=== PATIENT | female | born 1935 | race Caucasian/White ===

== ENCOUNTER 2016-10-06 22:22 | Observation (INO) | payer MEDICARE ==
[~2016-10-06] VITALS: Ht 147.3 cm; Wt 59.1 kg
[~2016-10-06 22:22] MED LIST: ASA325 PO; CYAN1TAB42 PO; DULO60CA42 PO; EZET10T PO; HCTZ25 PO; NAPR500T PO; OMEG100020 PO; OMEP40CA25 PO; SIMV80TA PO
[2016-10-06 22:27] VITALS: BP 167/72; PULSE 94; RESP 16; O2SAT 95
--- NOTE | 2016-10-06 22:48 | ED.REPORT ---
HPI-Abd Pain F 40 and Over Date of Service Oct 06, 2016 ED Provider: Kelsey Kirk MD This is an 81 year old female with a history of [place] presenting to the ED complaining of suprapubic abdominal pain that began just prior to arrival. Pt was eating a burger when she developed sudden onset suprapubic, shooting abdominal pain. This was associated with one episode of diarrhea, she then suddenly became dizzy, near-syncopal, and nauseated. Denies vomiting, hematochezia, chest pain, diaphoresis, or shortness of breath. Reports similar symptoms with [place] previously. Nursing Notes Stated Complaint: CHEST DISCOMFORT,NAUSEA Chief Complaint: General Complaint Nursing Notes Reviewed: Yes Allergies: Coded Allergies: No Known Allergies (Verified , 02/11/13) Scheduled Aspirin-Expunged Drug, Do Not Renew! (Aspirin-Expunged Drug, Do Not Renew!) 325 Mg Tablet 325 MG PO DAILY Cyanocobalamin/FA-Expunged Drug, Do Not Renew (Vitamin R74-Dpadr Acid-Expunged Drug, Do Not) 1 Each Tablet 1 EACH PO DAILY Duloxetine-Expunged Drug, Do Not Renew! (Cymbalta-Expunged Drug, Do Not Renew!) 60 Mg Capsule. 60 MG PO DAILY Ezetimibe (Zetia) 10 Mg Tablet 10 MG PO DAILY Hydrochlorothiazide-Expunged, Do Not Renew! (Hydrochlorothiazide-Expunged, Do Not Renew!) 25 Mg Tablet 25 MG PO DAILY Naproxen-Expunged Drug, Do Not Renew! (Naprosyn-Expunged Drug, Do Not Renew!) 500 Mg Tablet 500 MG PO BID [place]-3/Dha/Epa/Fish Oil-Expunged Drug, Do No (Fish Oil 1,000 Mg-Expunged Drug, Do Not Renew) 1 Each Capsule. 1 EACH PO BID Omeprazole-Expunged Drug, Do Not Renew! (Omeprazole-Expunged Drug, Do Not Renew! ) 40 Mg Capsule. 40 MG PO BID Simvastatin-Expunged Drug, Choose New Med! (Simvastatin-Expunged Drug, Choose New Med!) 80 Mg Tablet 80 MG PO DAILY General Time Seen by MD: 22:44 Chief Complaint Other Hx Obtained From: Patient Arrived By: Walk-in Sudden in Onset?: Yes Onset Occurred: Just prior to arrival Symptom Duration: Since onset Severity: Current: Mild Pertinent Negative: Pt denies other symptoms Recent Healthcare: No recent doctor visit, No recent hospitalization Similar Sx Previous: No Past Medical History Past Medical History [place] Past Surgical History Reports: Appendectomy, Cholecystectomy Ambulatory Status Independent Review of Systems Constitutional: Denies: Chills, Fever Respiratory: Denies: Non-productive cough, Shortness of breath Cardiovascular: Denies: Chest pain GI: Reports: Abdominal pain, Diarrhea, Denies: Nausea, Vomiting Female: Denies: Dysuria Musculoskeletal: Denies: Back pain Complete sys rev & neg: except as marked. Physical Exam Vital Signs Vital Signs (First) Date Time Temp Pulse Resp B/P Pulse Ox O2 Delivery O2 Flow Rate FiO2 10/06/16 22:27 36.4 94 16 167/72 95 Room Air 10/07/16 00:48 2 Initial VS: Reviewed Head / Eyes: Atraumatic, Normocephalic, PERRL ENT: Mucous membranes moist, Conjunctiva normal, No scleral icterus Neck: Supple, Non-tender, Full range of motion Extremities: Vascular intact, Neuro intact, No swelling, No tenderness Skin: Warm, Dry, No cyanosis Neurologic: Alert, Oriented, Nonfocal Psychiatric: Mood/affect normal, Behavior normal, Normal thought content General/Constitutional: Awake, Alert Respiratory / Chest: Breath sounds NL, Breath sounds = bilat, No respiratory distress, No rales, No rhonchi, No wheezing, No stridor Cardiovascular: Heart rate NL, Regular rhythm, Heart sounds NL, Peripheral circulation NL Abdomen: BS normoactive Back: Inspection NL, Non-tender, No CVA tenderness Interpretation & Diagnostics Lab Results Interpretation Result Diagram: 10/06/16232710/06/162327 Test 10/06/16 23:28 White Blood Count 10.7th/mm3 (3.8-10.1) Red Blood Count 5.05mil/mm3 (3.90-5.20) Hemoglobin 14.6g/dL (12.0-15.6) Hematocrit 44.3% (35.0-46.0) Mean Corpuscular Volume 87.7fL (81-100) Mean Corpuscular Hemoglobin 28.9pg (27.0-35.0) Mean Corpuscular Hemoglobin Concent 33.0% (32.0-37.0) Red Cell Distribution Width 14.4% (12.3-15.4) Platelet Count 207bil/L (150-400) Neutrophils (%) (Auto) 76.9% (40-74) Lymphocytes (%) (Auto) 12.9% (14-46) Monocytes (%) (Auto) 8.5% (4-12) Eosinophils (%) (Auto) 1.3% (0-5) Basophils (%) (Auto) 0.1% (0-3) Sodium Level 139mEq/L (134-144) Potassium Level 4.1mEq/L (3.5-5.2) Chloride Level 99mEq/L (97-108) Carbon Dioxide Level 28mmol/L (18-29) Blood Urea Nitrogen 23mg/dL (8-27) Creatinine 1.12mg/dL (0.57-1.00) Estimat Glomerular Filtration Rate 67mL/min (>59) Glucose Level 110mg/dL (60-99) Calcium Level 9.4mg/dL (8.5-10.1) Magnesium Level 2.5mg/dL (1.6-2.6) Total Bilirubin 0.3mg/dL (0.0-1.2) Aspartate Amino Transf (AST/SGOT) 20U/L (0-50) Alanine Aminotransferase (ALT/SGPT) 15U/L (0-32) Alkaline Phosphatase 85U/L (25-165) Troponin T 0.010ug/L (0.0-0.011) Pro-B-Type Natriuretic Peptide 258.6pg/mL (0-738) Total Protein 7.1g/dL (6.4-8.4) Albumin 4.5g/dL (3.4-5.0) Lipase 176U/L (13-60) Hold Trevino Top Tube Received (Received) ECG Interpretation ECG Interpretation: NSR at a rate of [address] elevation t-wave inversion in AVR Time: 23:53 Interpreted by: ED physician US Abdominal Aorta Aortic diameter 1.42 cm Exam Performed by: ED physician Exam Interpreted by: ED physician Findings: Aneurysm absent Interpretation: Aneurysm absent Re-Eval/Medical Decision Med Decision/Clinical Course 81-year-old female here with past medical history of [place], here with abdominal pain, near syncope, sweating, and diarrhea after eating at [employer]. Differential diagnosis includes but is not limited to pancreatitis versus gastritis versus gastroenteritis versus [place]. Initial EKG does not show any evidence of ST elevation NJ. Labs are remarkable for mildly elevated lipase and normal troponin. Given patient's history of silent NJ in the past, and had her admitted to the hospitalist for pancreatitis and ACS rule out. She is aware and amenable to plan at this time. Re-Evaluation/Progress #1: Time of Eval: 23:02 Re-Evaluation/Progress Note: Re-checked, bedside US performed Re-Evaluation/Progress #2: Time of Eval: 01:15 Re-Evaluation/Progress Note: Discussed need for admission, all questions addressed. Consultation : Referral / Consult Name: Gertrude Diana DO Consulted With: Hospitalist Call Returned at: 01:18 [employer] Technology Manager: Accepts admit Counseled Regarding: Diagnosis, Lab results, Need for follow-up, Need for admission Discharge & Departure Primary Impression: Pancreatitis Chronicity: acute Pancreatitis type: unspecified pancreatitis type Qualified Code: K85.9 - Acute pancreatitis, unspecified Disposition: ADMITTED TO HOSPITAL Discharge Condition All VS Reviewed: Yes Condition: Stable Referrals: America Smith (PCP) Scribe Attestation Portions of this note were transcribed by Dandy Teixeira. I, Dr. Kirk personally performed the history, physical exam and medical decision-making; I reviewed and confirmed the accuracy of the information in the transcribed note. Signed by: ramirez Saldana. 10/06/2016, 23:00. Kelsey Kirk MD Oct 06, 2016 22:48 DANDY TEIXEIRA Oct 06, 2016 22:55
[2016-10-06 23:32] VITALS: BP 154/57; PULSE 62; RESP 14; O2SAT 96
[2016-10-06 23:38] LABS: BASOPHILS % (AUTO) 0.1 % (0-3); EOSINOPHILS % (AUTO) 1.3 % (0-5); MONOCYTES % (AUTO) 8.5 % (4-12); Mean Corpuscular Hemoglobin 28.9 pg (27.0-35.0); Mean Corpuscular Volume 87.7 fL (81-100); NEUTROPHILS % (AUTO) 76.9 % (40-74); Platelet Count 207 bil/L (150-400)
[2016-10-07] VITALS (12 sets, daily range): BP systolic 147–189; BP diastolic 60–83; PULSE 52–75; RESP 12–20; O2SAT 94–97
[2016-10-07 00:28] LABS: Magnesium 2.5 mg/dL (1.6-2.6); TROPONIN T 0.01 ug/L (0.0-0.011)
[2016-10-07] MEDS ORDERED: Alum-Mag Hydrox-Simeth 30 mL Suspension PO PRN ×2 (01:40→02:05)
[2016-10-07] MEDS ORDERED: Ondansetron 2 mg/mL 2 mL Inj IVPUSH PRN ×2 (01:40→02:05)
[2016-10-07] MEDS ORDERED: Polyethylene Glycol (PEG) 17 Gm Powder PO PRN (02:05)
[2016-10-07] MEDS: 0.9% Sodium Chloride 1,000 ML IV SCH ×4 (02:32→23:54)
[2016-10-07] MEDS ORDERED: CHOL10008 PO (02:38)
[2016-10-07] MEDS ORDERED: OMEP40CA36 PO (03:41)
[2016-10-07] MEDS ORDERED: SIMV80TA4 PO (03:41)
[2016-10-07] MEDS ORDERED: DULO60CA61 PO (03:41)
[2016-10-07] MEDS ORDERED: ASPI325T32 PO (03:41)
[2016-10-07] MEDS ORDERED: MELA1TAB10 PO (03:42)
--- NOTE | 2016-10-07 03:45 | NUR ---
Admit Patient admitted to room 3020 at about 0200. Med list entered per patient recall. Property waiver signed and placed in chart. Oriented to room, call light, plan of care, hospital policies, intentional rounding. Patient is NPO except for sips and chips, per MD order. Alert and oriented, denies pain at this time. Telemetry connected, IV fluids infusing.
--- NOTE | 2016-10-07 03:52 | PCM.HPMED ---
Subjective Date of Service Oct 07, 2016 Primary Provider: Admitting Physician: Gertrude Diana DO Primary Care Physician: America Smith Attending Physician: Gertrude Diana DO Chief Complaint: Abdominal pain History of Present Illness: This is an 81 year old female with a history of [place] presenting to the ED complaining of abdominal pain that began just prior to arrival. Pt was eating a burger when she developed sudden onset suprapubic, shooting abdominal pain which began to move to the epigastric region. This was associated with nausea and one episode of diarrhea, she then suddenly became dizzy, near-syncopal. Denies vomiting, hematochezia, chest pain, diaphoresis, or shortness of breath. Denies visual changes, fevers, chills. She reports similar symptoms with [place] previously. She also reports some left sided chest wall pain and left arm pain, as well as bloating. In the ED, BP was 167/76, WBC 10.7, Cr 1.12, lipase 176, LFTs normal, troponin 0.01. 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 Review of Systems: Comprehensive review of systems conducted and was negative except for the pertinent positives listed above. Allergies Coded Allergies: No Known Allergies (Verified , 02/11/13) Home Medications 08/16/2016 Acidophilus Probiotic 100 million cell-10 mg capsule Take two tabs a day with food. May take up to four per day if improving. 10/28/2013 aspirin 325 mg tablet take 1 tablet by oral route every day 01/09/2016 Celexa 20 mg tablet TAKE THREE TABLETS BY MOUTH DAILY 01/09/2016 clobetasol 0.05 % topical ointment apply by TOPICAL route 2 times every day for 2 weeks a thin layerto the affected area(s) 08/29/2016 erythromycin 5 mg/gram (0.5 %) eye ointment apply (1CM) by ophthalmic route 3 times every day ribbon into the lower conjunctival sac(s) in the left eye x7 days 01/09/2016 Flonase 50 mcg/actuation nasal spray,suspension spray 2 [place](s) by Nasal route every day 01/09/2016 omeprazole 40 mg capsule,delayed release TAKE ONE CAPSULE BY MOUTH TWICE DAILY 01/09/2016 Premarin 0.625 mg/gram vaginal cream insert 1 applicatorful vaginally 2-3 TIMES WEEKLY. 01/09/2016 Zetia 10 mg tablet TAKE ONE TABLET BY MOUTH ONE TIME DAILY 01/09/2016 Zocor 80 mg tablet TAKE ONE TABLET BY MOUTH IN THE EVENING PMH Myocardial infarction Hyperlipidemia Hypertension Obstructive sleep apnea, not on CPAP GERD Depression Surgical History Appendectomy Cholecystectomy Family History Father at 52 of [place] Brother at 60 of [place] Social History Hx Alcohol Use: Yes (Occasionally) Hx Substance Use: No Hx Tobacco Use: No Exam Vital Signs Vital Sign - Last Date Time Temp Pulse Resp B/P Pulse Ox O2 Delivery O2 Flow Rate FiO2 10/07/16 01:11 36.4 54 12 147/60 96 Nasal Cannula 2 Exam General: Alert, Oriented X3, Cooperative, No Acute Distress Head: Normocephalic, atraumatic. External ears normal. Eyes: PERRLA, EOMI. Anicteric sclerae. Mouth: Mouth Normal, Mucous Membranes Moist/[place] Neck: Neck supple with full range of motion. No JVD. Chest & Lungs: Clear to auscultation bilaterally with no crackles, wheezes, or rhonchi. Cardiovascular: Regular Rate/Rhythm, Normal S1, Normal S2, No Murmurs/Rubs/ Gallops Abdomen: Diffuse tenderness, Non-distended, No masses, Normoactive bowel tones , Soft Musculoskeletal: Normal Range of Motion Extremities: No cyanosis/clubbing/edema bilaterally Neurological: Grossly Neurologically Intact, Normal Speech Lab and Diagnostics Result Diagram: 10/06/16232710/06/162327 Assessment & Plan This is an 81 year old female with a history of [place] presenting to the ED complaining of abdominal pain after eating a burger , with nausea, diarrhea, and dizziness. Admitted for acute pancreatitis. 1. Acute pancreatitis. Present on admission. - Pt presents with epigastric tenderness and pain after eating a meal. Lipase 176. Hx of cholecystectomy, but reports she has been drinking more frequently since her . Possibly secondary to alcohol. LFTs normal. No need for imaging at this time as she meets 2 of 3 criteria for pancreatitis. Pt denies significant pain, no IV meds needed at this time. - NPO, advance diet as tolerated - NS at 100 ml/hr 2. Chest pain, acute. Present on admission. - Pt presents with left sided chest pain and left arm pain. She states it may be similar to her previous [place]. 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 Trop negative. Will rule out ACS. - Monitor on telemetry - Troponin x3 - Continue home aspirin 325 mg daily 3. Hyperlipidemia - Continue Ezetimibe and simvastatin 4. Hypertension Obstructive sleep apnea, not on CPAP 5. GERD - Protonix 40 mg PO daily - Hold home omeprazole 6. Depression - Continue Celexa - Bowel regimen as needed - Antiemetic as needed OBSERVATION: Patient is admitted under observation status with expected length of stay less than 2 midnights due to severity of presenting symptoms, risk of adverse event, and complexity of treatment plan. Pain Evaluation: Adequate Pain Control Resuscitation Status: DNR/DNI:Do Not Resuscitate/Intubate Attending Statement The patient was seen and examined together with house staff on 10/07/16 and I agree with the history, exam and plan as outlined in the note above. Ricci Mcgill Oct 07, 2016 01:44 Gertrude Diana DO Oct 07, 2016 05:59
[2016-10-07 06:29] LABS: BASOPHILS % (AUTO) 0.1 % (0-3); EOSINOPHILS % (AUTO) 2.1 % (0-5); MONOCYTES % (AUTO) 10.1 % (4-12); Mean Corpuscular Volume 87.6 fL (81-100); NEUTROPHILS % (AUTO) 60.7 % (40-74); Platelet Count 197 bil/L (150-400)
--- NOTE | 2016-10-07 06:29 | NUR ---
Blood pressure Patient's blood pressure at 0615 was 181/72, HR 50's. paged, awaiting call back. Patient denies pain, and has NS at 100 ml/hr.
[2016-10-07] MEDS: Heparin 5,000 Unit/mL Inj SUBQ SCH ×3 (08:17→23:55)
[2016-10-07] MEDS: Pantoprazole 40 mg ER24 Tablet PO SCH (10:04)
[2016-10-07 10:25] LABS: APPEARANCE,URINE CLEAR (CLEAR,HAZY); COLOR,URINE STRAW (YELLOW); OCCULT BLOOD,URINE NEGATIVE (NEGATIVE); UROBILINOGEN,URINE NORMAL (NORMAL)
--- NOTE | 2016-10-07 15:29 | NUR ---
Social Work: Initial Assessment Data: Pt is an 81 y/o female admitted for pancreatitis, near syncope. Pt's PCP is Dr Smith, pt's insurance is [employer]. Readmit score not listed. EMR reviewed. KENO CLERK met with pt and daughter at bedside, role explained. Pt states she lives with her daughter in [facility] in a two story home where she uses no DME. She states she has no history of HH or SNF, no LTC or VA benefits, and is not a caregiver for another. Pt drives and pt's daughter plans to drive her home at d/c. Pt reports she has been up independent in the room and anticipates no needs at d/c. KENO CLERK will continue to follow if needs arise. Assessment: Pt who is independent at baseline. Plan: Pt will d/c home via POV with daughter when medically stable. No further d/c planning anticipated. KENO CLERK will continue to follow if needs arise. ANNE Addison Addendum: 10/07/16 at 1537 by FABRICIO RODRIGES Amended: Links added.
--- NOTE | 2016-10-07 17:21 | NUR ---
SARMAD explained, signed, copy given to pt of SARMAD and part D medication explanation.
--- NOTE | 2016-10-07 17:26 | NUR ---
Telemetry/Diet: Notified by satellite project site monitor that patient HR which has been 50-60s has decreased to mid 40s. Patient was sleeping at that time. Rechecked with satellite project site monitor after patient awake and HR now SR 68. Diet advanced to clear liquids. Tolerating well. Patient denies abdominal pain however describes feeling of "gas bubbles", denies nausea. Addendum: 10/07/16 at 1740 by MIGUEL REA RN MD text paged regarding HR. Addendum: 10/07/16 at 1757 by MIGUEL REA RN Placed on continuous pulse oximeter. Diet advanced to Full liquids and IVF decreased to 80mls/hr
--- NOTE | 2016-10-07 18:05 | PCM.PNMED ---
Subjective Date of Service Oct 07, 2016 Subjective Patient admitted early this AM for acute pancreatitis. Patient initially placed on NS 100cc/hr. decreased to NS 80cc/hr as patient denies any n/v and tolerated clear liquids well. It has been noted HR katherine to 50's and 40's when she sleeps. Possible GULSHAN. pulse ox with standby O2 as needed Exam Vital Signs Vital Sign - Last Date Time Temp Pulse Resp B/P Pulse Ox O2 Delivery O2 Flow Rate FiO2 10/07/16 17:29 36.8 61 16 167/73 95 Room Air 10/07/16 01:11 2 Intake and Output 10/06/16 10/06/16 10/07/16 Cumulative From/Thru 15:00 23:00 07:00 10/06/16 22:27 - 10/07/16 07:00 Intake Total 150 ml 150 ml Output Total 800 ml 800 ml Balance -650 ml -650 ml Intake Oral 150 ml 150 ml Output Urine Total 800 ml 800 ml Lab and Diagnostics Result Diagram: 10/07/16 0615 10/07/16 0615 Assessment & Plan This is an 81 year old female with a history of [place] presenting to the ED complaining of abdominal pain after eating a burger , with nausea, diarrhea, and dizziness. Admitted for acute pancreatitis. 1. Acute pancreatitis. Present on admission. - Pt presents with epigastric tenderness and pain after eating a meal. Lipase 176. Hx of cholecystectomy, but reports she has been drinking more frequently since her . Possibly secondary to alcohol. LFTs normal. No need for imaging at this time as she meets 2 of 3 criteria for pancreatitis. Pt denies significant pain, no IV meds needed at this time. - NPO, advance diet as tolerated - NS at 100 ml/hr 2. Chest pain, acute. Present on admission. - Pt presents with left sided chest pain and left arm pain. She states it may be similar to her previous [place]. 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 Trop negative. Will rule out ACS. - Monitor on telemetry - Troponin x3 - Continue home aspirin 325 mg daily 3. Hyperlipidemia - Continue Ezetimibe and simvastatin 4. Hypertension Obstructive sleep apnea, not on CPAP 5. GERD - Protonix 40 mg PO daily - Hold home omeprazole 6. Depression - Continue Celexa - Bowel regimen as needed - Antiemetic as needed OBSERVATION: Patient is admitted under observation status with expected length of stay less than 2 midnights due to severity of presenting symptoms, risk of adverse event, and complexity of treatment plan. Resuscitation Status: DNR/DNI:Do Not Resuscitate/Intubate Time spent 35 minutes Attending Statement I have seen and evaluated patient at bedside and directly supervised care provided by resident physician. I agree with above documentation. Oren Hollis DO Oct 07, 2016 18:05 Sid Cunha DO Oct 08, 2016 07:07
--- NOTE | 2016-10-07 23:26 | NUR ---
Blood Pressure Pt has an elevated blood pressure. Taken twice. Most recently 183/53. She has no complaints. Reported to night resident. Care ongoing
[2016-10-08 04:37] VITALS: BP 183/80; PULSE 58; RESP 20; O2SAT 95
[2016-10-08 08:42] LABS: BASOPHILS % (AUTO) 0.2 % (0-3); EOSINOPHILS % (AUTO) 4.9 % (0-5); MONOCYTES % (AUTO) 10.1 % (4-12); Mean Corpuscular Volume 88.1 fL (81-100); NEUTROPHILS % (AUTO) 55.8 % (40-74); Platelet Count 187 bil/L (150-400)
[2016-10-08] MEDS: Heparin 5,000 Unit/mL Inj SUBQ SCH ×2 (09:01→16:27)
[2016-10-08] MEDS: Pantoprazole 40 mg ER24 Tablet PO SCH (09:02)
[2016-10-08 09:18] VITALS: BP 165/62; PULSE 55; RESP 18; O2SAT 98
--- NOTE | 2016-10-08 14:15 | PCM.PNMED ---
Subjective Date of Service Oct 08, 2016 Subjective Overnight, Christie reports her abdominal pain has improved. She still has intermittent right upper quadrant and epigastric abdominal pain but it is mild compared to yesterday. She has not had any chest pain or shortness of breath. She has been advancing her diet and tolerating it well. She reports she does have fairly loose stools once or twice a day, but relates that this began after her cholecystectomy. she also admits to a fairly poor diet Exam Vital Signs Vital Sign - Last Date Time Temp Pulse Resp B/P Pulse Ox O2 Delivery O2 Flow Rate FiO2 10/08/16 04:37 36.9 58 20 183/80 95 Room Air 10/07/16 01:11 2 Intake and Output 10/07/16 10/07/16 10/08/16 Cumulative From/Thru 15:00 23:00 07:00 10/06/16 22:27 - 10/08/16 04:36 Intake Total 2452 ml 904 ml 3506 ml Output Total 1100 ml 1900 ml Balance 1352 ml 904 ml 1606 ml Intake Oral 1030 ml 1180 ml IV Total 1422 ml 904 ml 2326 ml Output Urine Total 1100 ml 1900 ml Exam General: Alert, Oriented X3, Cooperative, No Acute Distress Head: Normocephalic, atraumatic. External ears normal. Eyes: PERRLA, EOMI. Anicteric sclerae. Mouth: Mouth Normal, Mucous Membranes Moist/[place] Neck: Neck supple with full range of motion. No JVD. Chest & Lungs: Clear to auscultation bilaterally with no crackles, wheezes, or rhonchi. Cardiovascular: Regular Rate/Rhythm, Normal S1, Normal S2, No Murmurs/Rubs/ Gallops Abdomen: Mildly tender right upper quadrant, Non-distended, No masses, Normoactive bowel tones, Soft Musculoskeletal: Normal Range of Motion Extremities: No cyanosis/clubbing/edema bilaterally Neurological: Grossly Neurologically Intact, Normal Speech IVs and Medications Medications Reviewed: Medications were reviewed in detail Lab and Diagnostics Result Diagram: 10/07/1661410/07/16614 Assessment & Plan This is an 81 year old female with a history of [place] presenting to the ED complaining of abdominal pain after eating a burger , with nausea, diarrhea, and dizziness. She also had some complaints of left sided chest pain radiating to her left arm. She is admitted for acute pancreatitis and chest pain evaluation. 1. Acute pancreatitis. Present on admission. Improving - Pt presents with epigastric tenderness and pain after eating a meal. Lipase 176. Hx of cholecystectomy, but reports she has been drinking more frequently since her . Possibly secondary to alcohol. LFTs normal. No need for imaging at this time as she meets 2 of 3 criteria for pancreatitis. Pt denies significant pain, no IV meds needed at this time. She reports that she has been having this epigastric pain for the past 2 months since she started drinking. Reports only 3-4 drinks per week and her last drink was a week ago. - Has not needed medications for her abdominal pain. If pain worsens again an abdominal ultrasound or CT may be warranted. - Advance diet as tolerated - IVF discontinued 2. Chest pain, acute. Present on admission. Resolved. - Pt presents with left sided chest pain and left arm pain. She states it may be similar to her previous [place]. 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 Trop negative. - Monitor on telemetry- patient is bradycardic at night without symptoms - Troponin negative 1, subsequent troponins were not drawn, patient's chest pain rapidly resolved. - Continue home aspirin 325 mg daily -Plan for stress test to risk stratify patient. Nothing by mouth after midnight. 3. Hyperlipidemia, POA - Continue Ezetimibe and simvastatin 4. Hypertension, chronic, POA Patient has GULSHAN and has not been using CPAP. This likely is the root cause of her hypertension. We will start patient on amlodipine 5 mg to control her blood pressure and also not to interfere with the stress test. 5. GERD, pOA - Protonix 40 mg PO daily - Hold home omeprazole 6. Depression, POA - Continue Celexa - Bowel regimen as needed - Antiemetic as needed Dispo: She will likely need another night so that she can be further evaluated in the morning for her chest pain and also for her PO intake to improve. If stress test is within normal limits and she may be discharged tomorrow. Pain Evaluation: Adequate Pain Control VTE Prophylaxis: Sub-Q Heparin (Unfractionated) Resuscitation Status: DNR/DNI:Do Not Resuscitate/Intubate Attending Statement The patient was seen and examined together with Dr. Rollins on 10/08/2016 and I agree with the history, exam and plan as outlined in the note above. Ricci Rollins DO Oct 08, 2016 07:50 Kameron Michael MD Oct 08, 2016 14:52
[2016-10-08 16:36] VITALS: BP 161/74; PULSE 52; RESP 16; O2SAT 95
[2016-10-08 18:12] VITALS: PULSE 52
--- NOTE | 2016-10-08 19:49 | NUR ---
Teaching: Patient started on amlodipine for blood pressure. Discussed action of medication and side effects, care notes provided. Asked patient to continue to call for assistance to BR. Patient agreed. Discussed NPO and no caffeine status for MIBI scan on 10/09. Patient agreed.
[2016-10-08 20:00] VITALS: PULSE 59
[2016-10-08 20:48] VITALS: BP 144/69; PULSE 56; RESP 18; O2SAT 96
[2016-10-09] MEDS: Heparin 5,000 Unit/mL Inj SUBQ SCH ×3 (00:44→16:30)
[2016-10-09 00:46] VITALS: BP 140/72; PULSE 54; RESP 18; O2SAT 97
[2016-10-09 04:45] VITALS: BP 132/66; PULSE 55; RESP 18; O2SAT 93
--- NOTE | 2016-10-09 05:52 | NUR ---
Continuous Pulse Ox CPOX used continuously during the night. Pt HR dropped to 49 multiple times with Sats remaining 96-98% on RA. Call light within reach. Pleasant and cooperative with care.
[2016-10-09 07:18] LABS: BASOPHILS % (AUTO) 0.2 % (0-3); EOSINOPHILS % (AUTO) 4.7 % (0-5); MONOCYTES % (AUTO) 9.9 % (4-12); Mean Corpuscular Hemoglobin 28.6 pg (27.0-35.0); Mean Corpuscular Volume 87.4 fL (81-100); NEUTROPHILS % (AUTO) 53.7 % (40-74); Platelet Count 194 bil/L (150-400)
[2016-10-09] MEDS: Pantoprazole 40 mg ER24 Tablet PO SCH (08:01)
--- NOTE | 2016-10-09 08:45 | NUR ---
Off flloor Pt off floor to [facility] for STRESS test. Addendum: 10/09/16 at 1154 by OTF MOROCHO RN returned to floor at this time. A/O x 3, no c/o of pain.
--- NOTE | 2016-10-09 09:16 | PCM.PNMED ---
Subjective Date of Service Oct 09, 2016 Subjective Pain has been well controlled. No N/V/D. Will be undergoing ETT today. Assessment & Plan This is an 81 year old female with a history of CT presenting to the ED complaining of abdominal pain after eating a burger , with nausea, diarrhea, and dizziness. She also had some complaints of left sided chest pain radiating to her left arm. She is admitted for acute pancreatitis and chest pain evaluation. 1. Acute pancreatitis. Present on admission. Improving - Pt presents with epigastric tenderness and pain after eating a meal. Lipase 176. Hx of cholecystectomy, but reports she has been drinking more frequently since her . Possibly secondary to alcohol. LFTs normal. No need for imaging at this time as she meets 2 of 3 criteria for pancreatitis. Pt denies significant pain, no IV meds needed at this time. She reports that she has been having this epigastric pain for the past 2 months since she started drinking. Reports only 3-4 drinks per week and her last drink was a week ago. - Has not needed medications for her abdominal pain. If pain worsens again an abdominal ultrasound or CT may be warranted. - Advance diet as tolerated - IVF discontinued 2. Chest pain, acute. Present on admission. Resolved. - Pt presents with left sided chest pain and left arm pain. She states it may be similar to her previous CT. 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 Trop negative. - Monitor on telemetry- patient is bradycardic at night without symptoms - Troponin negative 1 on admit, subsequent troponins were not drawn, patient's chest pain rapidly resolved. - Continue home aspirin 325 mg daily - Plan for stress test to risk stratify patient. Nothing by mouth after midnight. 3. Hyperlipidemia, POA - Continue Ezetimibe and simvastatin 4. Hypertension, chronic, POA Patient has GULSHAN and has not been using CPAP. This likely is the root cause of her hypertension. We will start patient on amlodipine 5 mg to control her blood pressure and also not to interfere with the stress test. 5. GERD, pOA - Protonix 40 mg PO daily - Hold home omeprazole 6. Depression, POA - Continue Celexa - Bowel regimen as needed - Antiemetic as needed Dispo: She will likely need another night so that she can be further evaluated in the morning for her chest pain and also for her PO intake to improve. If stress test is within normal limits and she may be discharged tomorrow. Pain Evaluation: Adequate Pain Control VTE Prophylaxis: Sub-Q Heparin (Unfractionated) Resuscitation Status: DNR/DNI:Do Not Resuscitate/Intubate Exam Vital Signs Vital Sign - Last Date Time Temp Pulse Resp B/P Pulse Ox O2 Delivery O2 Flow Rate FiO2 10/09/16 04:45 36.8 55 18 132/66 93 Room Air 10/07/16 01:11 2 Intake and Output 10/08/16 10/08/16 10/09/16 Cumulative From/Thru 15:00 23:00 07:00 10/06/16 22:27 - 10/09/16 06:28 Intake Total 962 ml 1500 ml 0 ml 5968 ml Output Total 1950 ml 1000 ml 800 ml 5650 ml Balance -988 ml 500 ml -800 ml 318 ml Intake Oral 400 ml 1500 ml 0 ml 3080 ml IV Total 562 ml 2888 ml Output Urine Total 1950 ml 1000 ml 800 ml 5650 ml # Bowel Movements 1 0 1 Additional Information: General: Alert, Oriented X3, Cooperative, No Acute Distress Mouth: Mouth Normal, Mucous Membranes Moist/Catherine Neck: Neck supple with full range of motion. No JVD. Chest & Lungs: Clear to auscultation bilaterally with no crackles, wheezes, or rhonchi. Cardiovascular: Regular Rate/Rhythm, Normal S1, Normal S2, No Murmurs/Rubs/ Gallops Abdomen: NT, ND, Normoactive bowel tones, Soft Musculoskeletal: Normal Range of Motion Extremities: No cyanosis/clubbing/edema bilaterally Neurological: Grossly Neurologically Intact, Normal Speech Lab and Diagnostics Result Diagram: 10/09/16 0635 10/09/16 0635 Ricci Rollins DO Oct 09, 2016 06:57 Kameron Michael MD Oct 10, 2016 10:05
[2016-10-09 14:54] VITALS: BP 112/59; PULSE 51; RESP 16; O2SAT 97
[2016-10-09] MEDS ORDERED: AMLO5TAB2 PO (15:30)
[2016-10-09] MEDS ORDERED: ASPI81TA3 PO (15:30)
--- NOTE | 2016-10-09 15:34 | PCM.DIMED ---
Ricci Rollins DO 10/09/16 1534: Discharge Instructions Date of Service Oct 09, 2016 Dates of Hospitalization Oct 07, 2016 at 01:05 Discharge Diagnosis Discharge Diagnosis 1. Acute pancreatitis. Resolved 2. Chest pain, acute. Resolved. 3. Hyperlipidemia 4. Hypertension 5. GERD 6. Depression Medication Instructions Continue taking your home medications as instructed. We have added on Amlodipine 5mg take 1 tablet daily. This will help to control your blood pressure. Diet Heart Healthy Activity No restrictions Call your provider Fever or Chills, Shortness of breath, Chest pain Patient Instructions You are being discharged home today. Your pancreatitis has resolved and your stress test did not show any abnormality. We have started you on a blood pressure medication to help control your blood pressure better. Follow-up Provider: America Smith Follow-up with PCP in: 1 week Kameron Michael MD 10/10/16 1005: Ricci Rollins DO Oct 09, 2016 15:34 Kameron Michael MD Oct 10, 2016 10:05
--- NOTE | 2016-10-09 16:09 | DRSVH ---
PROCEDURE: ONE DAY PHARMACOLOGICAL STRESS TEST. Rest and pharmacological stress myocardial perfusio n SPECT with gated imaging and ejection fraction RADIOPHARMACEUTICAL: 8.64 mCi Tc-99m tetrofosmin IV at rest and 24.6 mCi Tc-99m tetrofosmin IV at pe ak effect of pharmacological stress. A [id number] was performed. INDICATIONS: Chest pain. TECHNIQUE: Radiopharmaceutical was injected at peak stress test and also at rest. SPECT images were obtained. SPECT myocardial perfusion images were displayed in short axis, horizontal long axis, and vertical long axis views. Gated images were reviewed using [employer] software. COMPARISON: None. CARDIAC STRESS: A pharmacologic stress test was performed under the supervision of attending staff u sing an infusion of Lexiscan as per protocol. Hemodynamic Data: The patient remained hemodynamically stable. Blood pressure and heart rate remain ed stable. Symptoms: The patient had chest pain and shortness of breath during Lexiscan, which resolved with a 100 mg of IV aminophylline. Aminophylline: 100 mg IV aminophylline was given. EKG: Baseline rhythm was sinus with sinus bradycardia, rate about 54. During stress there were some nonspecific ST-T changes. There were no obvious convincing significant inducible ischemic changes. Occasional PVCs. No significant sustained arrhythmias. FINDINGS: Raw Data: There appears to be adequate myocardial uptake. Left Ventricular Function: Resting LV ejection fraction is 61% and stress LV ejection fraction is 90 %. No obvious wall motion abnormalities. Resting LV and diastolic volume 48 mL. On my visual inspe ction, there is no transient ischemic dilatation. Myocardial Perfusion: Stress supine and resting supine images revealed small-size, mildly decreased perfusion of the base to mid inferior wall and inferoapex, which completely normalized during prone i mages, suggestive of diaphragmatic tissue attenuation artifact. Prone images reveal normal myocardia l perfusion. IMPRESSION: I will call this study a normal myocardial perfusion study with evidence of diaphragmati c tissue attenuation artifact, which resolved during prone images. Left ventricular function is pres erved. Overall, this is a low-risk myocardial perfusion scan. Dictated by: Barry Cuellar M.D. on 10/09/2016 at 14:17 Transcribed by: JONI on 10/09/2016 at 19:08 Approved by: Barry Cuellar M.D. on 10/12/2016 at 13:06
--- NOTE | 2016-10-09 16:33 | NUR ---
Social Work-discharge: Data:EMR reviewed. Pt is on day 2 of hospitalization for pancreatitis per H&P. Pt is medically stable to discharge at this time. Pt has been up independent in her room and is staying with her daughter. No discharge needs identified. All updated and agreeable to plan. Assessment:Pt who is independent at baseline. Plan:Pt to discharge home today via POV. No discharge needs identified. All updated and agreeable to plan. ANNE Mishra
--- NOTE | 2016-10-09 17:12 | NUR ---
Discharge Pt discharged home with daughter via private vehicle. Pt verbalized understanding of discharge and Rx instructions, personal belongings accounted for and left with pt.
--- NOTE | 2016-10-09 17:29 | PCM.DC.MED ---
Discharge Summary Date of Service Oct 09, 2016 Dates of Hospitalization Date of Hospital Admission Oct 07, 2016 at 01:05 Date of Discharge: Oct 09, 2016 Providers: Admitting Physician: Gertrude Diana DO Primary Care Physician: America Smith Attending Physician: Gertrude Diana DO Diagnosis at Time of Discharge Diagnosis at Time of Discharge 1. Acute pancreatitis. Resolved 2. Chest pain, acute. Resolved. 3. Hyperlipidemia 4. Hypertension 5. GERD 6. Depression Brief History This is an 81 year old female with a history of UT presenting to the ED complaining of abdominal pain that began just prior to arrival. Pt was eating a burger when she developed sudden onset suprapubic, shooting abdominal pain which began to move to the epigastric region. This was associated with nausea and one episode of diarrhea, she then suddenly became dizzy, near-syncopal. Denies vomiting, hematochezia, chest pain, diaphoresis, or shortness of breath. Denies visual changes, fevers, chills. She reports similar symptoms with UT previously. She also reports some left sided chest wall pain and left arm pain, as well as bloating. In the ED, BP was 167/76, WBC 10.7, Cr 1.12, lipase 176, LFTs normal, troponin 0.01. 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 Hospital Course This is an 81 year old female with a history of UT presenting to the ED complaining of abdominal pain after eating a burger , with nausea, diarrhea, and dizziness. She also had some complaints of left sided chest pain radiating to her left arm. She is admitted for acute pancreatitis and chest pain evaluation. 1. Acute pancreatitis. Present on admission. Resolved. - Pt presents with epigastric tenderness and pain after eating a meal. Lipase 176. Hx of cholecystectomy, but reports she has been drinking slightly more frequently since her . Possibly secondary to alcohol. LFTs normal. No need for imaging at this time as she meets 2 of 3 criteria for pancreatitis. Pt denies significant pain, no IV meds needed at this time. She reports that she has been having this epigastric pain for the past 2 months since she started drinking. Reports only 3-4 drinks per week and her last drink was a week ago. -Patient received IVF and improved fairly quickly. Her diet was advanced to general and her abdominal pain was resolved on discharge. 2. Chest pain, acute. Present on admission. Resolved. - Pt presents with left sided chest pain and left arm pain. She states it may be similar to her previous UT. 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 Trop negative. - Monitor on telemetry- patient is bradycardic at night without symptoms, this is her baseline - Troponin negative 1 on admit, subsequent troponins were not drawn, patient's chest pain rapidly resolved. It was also reproducible with palpation. - Continue home aspirin 81mg daily on discharge. - She also had an exercise stress test that did not show any significant ischemia. 3. Hyperlipidemia, POA - Continued Ezetimibe and simvastatin 4. Hypertension, chronic, POA Patient has GULSHAN and has not been using CPAP. This likely is the root cause of her hypertension. We will start patient on amlodipine 5 mg to control her blood pressure. 5. GERD, POA - Protonix 40 mg PO daily - Hold home omeprazole 6. Depression, POA -Patient's mood somewhat labile during hospital admission due to her 's recent passing. - Continue Celexa Exam Vital Signs (Last) Date Time Temp Pulse Resp B/P Pulse Ox O2 Delivery O2 Flow Rate FiO2 10/09/16 14:54 37.6 51 16 112/59 97 Room Air 10/07/16 01:11 2 Test 10/06/16 23:28 10/07/16 06:15 10/07/16 08:30 10/08/16 08:25 Magnesium Level 2.5mg/dL (1.6-2.6) Pro-B-Type Natriuretic Peptide 258.6pg/mL (0-738) Hold Trevino Top Tube Received (Received) Total Bilirubin 0.2mg/dL (0.0-1.2) Aspartate Amino Transf (AST/SGOT) 16U/L (0-50) Alanine Aminotransferase (ALT/SGPT) 12U/L (0-32) Alkaline Phosphatase 79U/L (25-165) Total Protein 5.8g/dL (6.4-8.4) Albumin 3.8g/dL (3.4-5.0) Triglycerides Level 211mg/dL (0-149) Cholesterol Level 163mg/dL (100-199) LDL Cholesterol, Calculated 79.800mg/dL (0-99) VLDL Cholesterol 42.200mg/dL HDL Cholesterol 41mg/dL (>39) Cholesterol/HDL Ratio 3.98 (0.0-4.4) Urine Color Straw (YELLOW) Urine Appearance Clear (CLEAR,HAZY) Urine pH 7.0 (5.0-8.0) Urine Specific [place] 1.010 (1.003-1.035) Urine Protein Negativemg/dL (NEG,TRACE) Urine Glucose (UA) Negativemg/dL (NEGATIVE) Urine Ketones Negativemg/dL (NEGATIVE) Urine Occult Blood Negative (NEGATIVE) Urine Nitrite Negative (NEGATIVE) Urine Bilirubin Negative (NEGATIVE) Urine Urobilinogen Normalmg/dL (NORMAL) Urine Leukocyte Esterase Negative (NEGATIVE) Urine RBC 0-2/hpf (0-2) Urine WBC 0-5/hpf (0-5) Urine Epithelial Cells Few/hpf (NONE-MOD) Urine Crystals None seen (NONE SEEN) Urine Bacteria None/hpf (NONE-FEW) Urine Hyaline Casts None/lpf (NONE) Urine Granular Casts None seen (NONE SEEN) Urine Waxy Casts None seen (NONE SEEN) Urine Red Blood Cell Casts None seen (NONE SEEN) Urine White Blood Cell Casts None seen (NONE SEEN) Urine Mucus None seen (None Seen) Urine Trichomonas None seen (NONE SEEN) Urine Yeast None (NONE SEEN) Urinalysis Comment None Urine Culture Reflexed Not indicated Troponin T < 0.010ug/L (0.0-0.011) Lipase 20U/L (13-60) Test 10/09/16 06:35 White Blood Count 5.9th/mm3 (3.8-10.1) Red Blood Count 4.69mil/mm3 (3.90-5.20) Hemoglobin 13.4g/dL (12.0-15.6) Hematocrit 41.0% (35.0-46.0) Mean Corpuscular Volume 87.4fL (81-100) Mean Corpuscular Hemoglobin 28.6pg (27.0-35.0) Mean Corpuscular Hemoglobin Concent 32.7% (32.0-37.0) Red Cell Distribution Width 14.4% (12.3-15.4) Platelet Count 194bil/L (150-400) Neutrophils (%) (Auto) 53.7% (40-74) Lymphocytes (%) (Auto) 31.0% (14-46) Monocytes (%) (Auto) 9.9% (4-12) Eosinophils (%) (Auto) 4.7% (0-5) Basophils (%) (Auto) 0.2% (0-3) Sodium Level 144mEq/L (134-144) Potassium Level 4.3mEq/L (3.5-5.2) Chloride Level 104mEq/L (97-108) Carbon Dioxide Level 26mmol/L (18-29) Blood Urea Nitrogen 12mg/dL (8-27) Creatinine 1.05mg/dL (0.57-1.00) Estimat Glomerular Filtration Rate 72mL/min (>59) Glucose Level 113mg/dL (60-99) Calcium Level 9.1mg/dL (8.5-10.1) Discharge Medications Discharge Medications Amlodipine (Amlodipine) 5 Mg Tablet 5 MG PO DAILY Prescribed by: DUSTIN ROLLINS DO Aspirin Chew (Aspirin Chew) 81 Mg Chew 81 MG PO DAILY Prescribed by: DUSTIN ROLLINS, DO Cholecalciferol (Vitamin D3) (Vitamin D3) 1,000 Unit Tab.chew 2,000 UNIT PO DAILY (Reported) Duloxetine (Duloxetine) 60 Mg Capsule. 60 MG PO DAILY (Reported) Omeprazole (Omeprazole) 40 Mg Capsule. 40 MG PO BID (Reported) Simvastatin (Simvastatin) 80 Mg Tablet 80 MG PO HS (Reported) As needed Melatonin (Melatonin 1 mg Tablet) 1 Each Tablet 1 MG PO HS PRN PRN For Insomnia (Reported) Additional med instructions Continue taking your home medications as instructed. We have added on Amlodipine 5mg take 1 tablet daily. This will help to control your blood pressure. Followup Plan Disposition: Home Discharge Diet: Heart Healthy Discharge Activity: No restrictions Patient Instructions You are being discharged home today. Your pancreatitis has resolved and your stress test did not show any abnormality. We have started you on a blood pressure medication to help control your blood pressure better. Follow-up Provider: America Smith Follow-up with PCP in: 1 week Time spent 30 minutes Attending Statement The patient was seen and examined together with Dr. Rollins on 10/09/2016 and I agree with the history, exam and plan as outlined in the note above. copies to: America Smtiho,Ricci Keith DO Oct 09, 2016 17:29 Kameron Michael MD Oct 10, 2016 10:05
--- NOTE | 2016-10-11 10:57 | DRSVH ---
CORRECTED ACCOUNT NUMBER ON 10/11/16 PROCEDURE: X-RAY CHEST, TWO VIEWS ([id number]) INDICATIONS: near syncope TECHNIQUE: 2 views of the chest were acquired. COMPARISON: None. FINDINGS: Surgical changes and devices: None. Lungs and pleura: No pleural effusions or pneumothorax. Lungs are clear. Mediastinum: Mediastinal contours are normal. Heart size is normal. The aorta is mildly calcified. Bones and chest wall: No suspicious bony abnormalities. Soft tissues appear unremarkable. IMPRESSION: No acute cardiopulmonary findings. Dictated by: Marjorie Weiss M.D. on 10/07/2016 at 7:21 Approved by: Marjorie Weiss M.D. on 10/07/2016 at 7:22
== END 2016-10-09 17:01 | disposition home or self-care (01) ==
LOC: SED 22:22 → MPC 10-07 01:05
PROVIDERS: ADMIT Internal Medicine; ATTEND Internal Medicine
DX: K85.90 Acute pancreatitis without necrosis or infection, unspecified (principal); R07.9 Chest pain, unspecified; E78.5 Hyperlipidemia, unspecified; I10 Essential (primary) hypertension; K21.9 Gastro-esophageal reflux disease without esophagitis; F32.9 Major depressive disorder, single episode, unspecified; G47.33 Obstructive sleep apnea (adult) (pediatric); I25.2 Old myocardial infarction; Z79.82 Long term (current) use of aspirin
CPT/HCPCS: 36415; 71020; 78452; 80048; 80053; 80061; 81000; 82948; 83690; 83735; 83880; 84484; 85025; 93005; 93017; 99285; A9502; G0378; J0280; J1644; J2785; J7030

== ENCOUNTER 2017-02-06 19:24 | Emergency (ER) | payer MEDICARE ==
[~2017-02-06] VITALS: Ht 147.3 cm; Wt 55.9 kg
[~2017-02-06 19:24] MED LIST changes: +AMLO5TAB2 PO; -ASA325 PO; +ASPI81TA3 PO; +CHOL10008 PO; -CYAN1TAB42 PO; -DULO60CA42 PO; +DULO60CA61 PO; -EZET10T PO; -HCTZ25 PO; +MELA1TAB10 PO; -NAPR500T PO; -OMEG100020 PO; -OMEP40CA25 PO; +OMEP40CA36 PO; -SIMV80TA PO; +SIMV80TA4 PO
[2017-02-06 19:28] VITALS: BP 157/69; PULSE 58; RESP 18; O2SAT 95
[2017-02-06 19:46] LABS: BASOPHILS % (AUTO) 0.2 % (0-3); EOSINOPHILS % (AUTO) 3.1 % (0-5); MONOCYTES % (AUTO) 11.1 % (4-12); Mean Corpuscular Hemoglobin 29.6 pg (27.0-35.0); Mean Corpuscular Volume 89.5 fL (81-100); NEUTROPHILS % (AUTO) 62.4 % (40-74); Platelet Count 209 bil/L (150-400)
--- NOTE | 2017-02-06 20:01 | DRSVH ---
PROCEDURE: CT BRAIN WITHOUT CONTRAST ([id number]) INDICATIONS: 81 year-old female with stroke symptoms. TECHNIQUE: Noncontrast 4.5 mm thick angled axial sections acquired from the foramen magnum to the vertex, with c oronal reformats. COMPARISON: None. FINDINGS: Image quality: Excellent. CSF spaces: Basal cisterns are patent. No extra-axial fluid collections. Ventricles are normal in size and shape. Brain: No midline shift. No intracranial masses or hemorrhage. There is mild periventricular white matter chronic small vessel ischemic change. Skull and face: Calvarium and visualized facial bones are intact, without suspicious lesions. Sinuses: Visualized sinuses and mastoids are clear. IMPRESSION: No acute intracranial abnormalities. Periventricular white matter chronic small vessel is chemic change. Dictated by: Odilon Estevez M.D. on 02/06/2017 at 19:58 Approved by: Odilon Estevez M.D. on 02/06/2017 at 19:59
[2017-02-06 20:05] LABS: INR 0.94 ratio
[2017-02-06 20:32] LABS: TROPONIN T < 0.010 ug/L (0.0-0.011)
--- NOTE | 2017-02-06 20:37 | ED.REPORT ---
HPI-Neurologic Deficit Date of Service February 06, 2017 ED Provider: Chris Arellano MD The patient is an 81 year old female with a medical history including hypertension, hyperlipidemia, and GA who presents to the ED with a right-sided headache onset gradually two days ago, worsening at 13:30 today. Associated symptoms include tingling of her bilateral fingers and tongue as well as neck pain and imbalance on ambulation. The patient also reports one week of right ear pain, recent increasing dysphagia, and generalized weakness. She denies ear discharge, fever, focal weakness, or other symptoms. Nursing Notes Stated Complaint: NUMBNESS,TINGLING IN FINGERS,TONGUE,NECK Chief Complaint: Neuro Symptoms/ Deficits Nursing Notes Reviewed: Yes Allergies: Coded Allergies: No Known Allergies (Verified , 02/11/13) Scheduled Amlodipine (Amlodipine) 5 Mg Tablet 5 MG PO DAILY Amoxicillin/Clav K 875-125 mg (Augmentin 875-125 mg) 1 Each Tablet 1 TABLET PO BID Aspirin Chew (Aspirin Chew) 81 Mg Chew 81 MG PO DAILY Cholecalciferol (Vitamin D3) (Vitamin D3) 1,000 Unit Tab.chew 2,000 UNIT PO DAILY Duloxetine (Duloxetine) 60 Mg Capsule.dr 60 MG PO DAILY Omeprazole (Omeprazole) 40 Mg Capsule.dr 40 MG PO BID Simvastatin (Simvastatin) 80 Mg Tablet 80 MG PO HS Scheduled PRN Melatonin (Melatonin 1 mg Tablet) 1 Each Tablet 1 MG PO HS PRN PRN For Insomnia General Time Seen by Provider: 19:35 Chief Complaint Other (Headache) Hx Obtained From: Patient Arrived By: Ambulance Sudden in Onset?: No Onset Occurred: 2 days ago Symptom Duration: Since onset Progression Since Onset: Rapidly worsening Location: : Head (Right ear) Quality: Painful Severity: Current: Moderate Severity: Maximum: Moderate Pertinent Negative: Relieved by nothing Related History: Reports: Hypertension Immunizations: Unknown Recent Healthcare: No recent doctor visit Past Medical History Past Medical History Notes: Visits [facility] in [place] Past Medical History Myocardial infarction Hyperlipidemia Hypertension Obstructive sleep apnea, not on CPAP GERD Depression Past Surgical History Reports: Appendectomy, , Cholecystectomy, Hysterectomy Family History Father at 52 of [place] Brother at 60 of [place] Smoking History Unknown if Ever Smoker Social History Other Social History: Good social support Ambulatory Status Independent Review of Systems Review of Systems Note: + Tingling of bilateral fingers and tongue, dysphagia Constitutional: Reports: Weakness - generalized, Denies: Fever Respiratory: Denies: Non-productive cough, Shortness of breath GI: Denies: Diarrhea, Vomiting Musculoskeletal: Reports: Neck pain Neurologic: Reports: Headache (Right-sided), Problem walking (Imbalance), Denies: Focal weakness Complete sys rev & neg: except as marked. Ears / Nose / Throat: Reports: Earache right, Denies: Ear drainage bilateral Physical Exam Initial Vital Signs Vital Signs (First) Date Time Temp Pulse Resp B/P Pulse Ox O2 Delivery O2 Flow Rate FiO2 02/06/17 19:28 35.8 58 18 157/69 95 Room Air Initial VS: Reviewed Skin: Warm, Dry, No cyanosis Psychiatric: Mood/affect normal, Behavior normal, Normal thought content General/Constitutional: Awake, Alert, No acute distress Head / Eyes: Atraumatic, Normocephalic, PERRL, EOMI Temporal Artery: Negative: Temp artery tender bilat No temporal tenderness Temporal arteries palpable Right zygomatic tenderness to percussion Respiratory / Chest: Breath sounds NL, Breath sounds = bilat, No respiratory distress Cardiovascular: Heart rate NL, Regular rhythm, Heart sounds NL, No gallop, No murmurs, No rubs Neurologic: Oriented X3, Speech NL Focal Weakness: Negative: Pronator drift L, Pronator drift R Cerebellar Dysfunction: Negative: Finger-nose abnl ENT: Airway patent, Mucous membranes moist, Mastoid area NL (Nontender) Right Ear / Mastoid: Positive: Tympanic membrane bulging, Tympanic membrane red Right canal nontender Interpretation & Diagnostics Lab Results Interpretation Result Diagram: 02/06/17193402/06/171934 Test 02/06/17 19:35 White Blood Count 8.3th/mm3 (3.8-10.1) Red Blood Count 4.76mil/mm3 (3.90-5.20) Hemoglobin 14.1g/dL (12.0-15.6) Hematocrit 42.6% (35.0-46.0) Mean Corpuscular Volume 89.5fL (81-100) Mean Corpuscular Hemoglobin 29.6pg (27.0-35.0) Mean Corpuscular Hemoglobin Concent 33.1% (32.0-37.0) Red Cell Distribution Width 14.4% (12.3-15.4) Platelet Count 209bil/L (150-400) Neutrophils (%) (Auto) 62.4% (40-74) Lymphocytes (%) (Auto) 22.8% (14-46) Monocytes (%) (Auto) 11.1% (4-12) Eosinophils (%) (Auto) 3.1% (0-5) Basophils (%) (Auto) 0.2% (0-3) Prothrombin Time 10.0sec (8.1-12.5) Prothromb Time International Ratio 0.94ratio Activated Partial Thromboplast Time 25.1sec (22.8-33.0) Sodium Level 142mEq/L (134-144) Potassium Level 3.9mEq/L (3.5-5.2) Chloride Level 99mEq/L (97-108) Carbon Dioxide Level 26mmol/L (18-29) Blood Urea Nitrogen 19mg/dL (8-27) Creatinine 1.16mg/dL (0.57-1.00) Estimat Glomerular Filtration Rate 64mL/min (>59) Glucose Level 112mg/dL (60-99) Calcium Level 9.4mg/dL (8.5-10.1) Total Bilirubin 0.2mg/dL (0.0-1.2) Aspartate Amino Transf (AST/SGOT) 24U/L (0-50) Alanine Aminotransferase (ALT/SGPT) 18U/L (0-32) Alkaline Phosphatase 85U/L (25-165) Troponin T < 0.010ug/L (0.0-0.011) Total Protein 6.9g/dL (6.4-8.4) Albumin 4.0g/dL (3.4-5.0) ECG Interpretation ECG Interpretation: Sinus rhythm rate [address] depression Old inferior infarct Time: 19:39 Interpreted by: ED physician CT Head Interpretation IMPRESSION: No acute intracranial abnormalities. Periventricular white matter chronic small vessel ischemic change. Dictated by: Odilon Estevez M.D. on 02/06/2017 at 19:58 Study: Head CT no contrast Interpretation / Wet Read by: Interpret - Radiologist Procedures Foreign Body Removal - Ear Time: 21:16 Procedure Performed by: ED physician Consent / Setup: Consent from patient, Hand hygiene observed, Stand sterile technique Foreign Body / # / Location: Cerumen, Right ear Anesthesia / Instrument: Other instrument (Curette) Removal of FB: Complete Post-Procedure / Complications: TM Intact, No complications, Condition improved , Tolerated procedure well, Patient stable Re-Eval/Medical Decision Med Decision/Clinical Course 79-year-old female with right headache and ear pain. Also has a variety of other nonspecific symptoms including tingling in her hands and tongue. She is not having a fever. Imaging and exam do not suggest acute CVA. She has a definite right otitis media on her temporal artery tenderness to suggest temporal arteritis. Headache is not what one would expect for meningitis or hemorrhage. Source of Hx: Old records Re-Evaluation/Progress : Time of Eval: 21:16 Patient Status: Condition improved Re-Evaluation/Progress Note: Discussed with patient CT and lab results, diagnosis, and plan for discharge. Follow-up and return to the ER instructions given. Patient agrees with plan for care and all questions were addressed. Counseled Regarding: Diagnosis, Lab results, Need for follow-up, When/why to return to ED Discharge & Departure Impression: Primary Impression: Right otitis media Otitis media type: suppurative Chronicity: acute Recurrence: not specified as recurrent Spontaneous tympanic membrane rupture: without spontaneous rupture Qualified Code: H66.001 - Acute suppurative otitis media without spontaneous rupture of ear drum, right ear Disposition: Home Discharge Condition All VS Reviewed: Yes Condition: Improved Patient Instructions: Otitis Media (ED) Additional Instructions: Your emergency room evaluation today included an interview, physical exam, labs , head CT, and EKG. Your head CT indicated chronic changes related to aging but nothing suggesting serious disease. Your right ear appears infected. We will start augmentin twice daily for 10 days. use tylenol as needed for pain. Saline nasal rinses to clear nose. BP is elevated today at 180 systolic. Please re-check this on follow up. Follow-up with the [facility] in the next week for a follow-up appointment. Return to the emergency room with any other new or worsening symptoms. Referrals: Benito Ling PA-C (PCP) Scribe Attestation Portions of this note were transcribed by Jacqui Matos. I, Dr. Arellano, personally performed the history, physical exam, and medical decision-making; I reviewed and confirmed the accuracy of the information in the transcribed note. Signed by: Alecia Short, 02/06/2017, 23:15 copies to: Benito Ling PA-C, Donald L MD February 06, 2017 20:36 JACQUI MATOS February 06, 2017 20:37
[2017-02-06] MEDS ORDERED: AMOX-366 PO (21:29)
[2017-02-06] MEDS ORDERED: Amoxicillin-Clav 875-125 mg Tablet PO ONE (21:30)
[2017-02-06 21:57] VITALS: BP 153/58; PULSE 54; RESP 16; O2SAT 97
== END 2017-02-06 21:59 | disposition home or self-care (01) ==
LOC: SED 19:34
DX: H66.001 Acute suppurative otitis media without spontaneous rupture of ear drum, right ear (principal); H61.21 Impacted cerumen, right ear; R20.2 Paresthesia of skin; I11.9 Hypertensive heart disease without heart failure; I25.2 Old myocardial infarction; E78.5 Hyperlipidemia, unspecified; K21.9 Gastro-esophageal reflux disease without esophagitis; F32.9 Major depressive disorder, single episode, unspecified; Z79.82 Long term (current) use of aspirin

== ENCOUNTER 2017-03-12 09:27 | Day surgery (SDC) | payer MEDICARE ==
--- NOTE | 2017-03-11 12:55 | PCM.HPANE ---
Patient Data Surgeon Admitting Provider: Attending Provider:Rhett Caballero MD Primary Care Physician:Benito Ling PA-C Other Provider:Lucia Oharaingham Anesthesia Reason for Visit Right Lower Quadrant Pain, Esophageal Dysphagia Ht/WT & BMI Body Mass Index Allergies Coded Allergies: No Known Allergies (Verified , 02/11/13) Past Anesthesia History Anesthesia History: Denies:: Abnormal Airway, Anesthesia Reactions, Difficult Intubation, Fam Anesthesia Reaction, Fam Malignant Hypertherm, Malignant Hyperthermia Diabetes History Hx Diabetes?: No (PREDIABETIC) MRSA MRSA: No Medications Blood Thinner: Aspirin Reported Medications Aspirin 81 Mg Luohry81 Mg PO DAILY Ref 0 03/12/17 Simvastatin (Zocor)80 Mg Jqffzg74 Mg PO HS 30 Days Ref 0 03/11/17 Ranitidine 150 Mg Wktharo748 Mg PO BID Ref 0 03/11/17 Estrogens Conjugated (Premarin)0.625 Mg Tablet0.625 Mg PO DAILY 30 Days Ref 0 03/11/17 Lisinopril 5 Mg Tablet5 Mg PO DAILY #30 TABLET Ref 0 03/11/17 Fluticasone Propionate (Flonase Allergy Relief)50 Mcg/Actuation [place].susp2 Sprays NS 03/11/17 Acidophilus/Pectin, [place] (Acidophilus [place])1 Each Tablet2 Each PO DAILY 03/11/17 Discontinued Reported Medications Ezetimibe (Zetia)10 Mg Dzqolk59 Mg PO DAILY 30 Days Ref 0 03/11/17 Aspirin 325 Mg Bbyvsx055 Mg PO DAILY #1 BOTTLE 03/11/17 Melatonin (Melatonin 1 mg Tablet)1 Each Tablet1 Mg PO HS PRN For Insomnia Ref 0 10/07/16 Simvastatin 80 Mg Ygqoef29 Mg PO HS 30 Days Ref 0 10/07/16 Omeprazole 40 Mg Capsule.dr40 Mg PO BID Ref 0 10/07/16 Duloxetine 60 Mg Capsule.dr60 Mg PO DAILY Ref 0 10/07/16 Cholecalciferol (Vitamin D3) (Vitamin D3)1,000 Unit Tab.chew2,000 Unit PO DAILY 10/07/16 Discontinued Scripts Amoxicillin/Clav K 875-125 mg (Augmentin 875-125 mg)1 Each Tablet1 Tablet PO BID #20 TABLET Ref 0 Prov:Chris Arellano MD 02/06/17 Amlodipine 5 Mg Tablet5 Mg PO DAILY #30 TABLET Prov:Ricci Rollins DO 10/09/16 Aspirin Chew 81 Mg Chew81 Mg PO DAILY #60 Prov:Ricci Rollins DO 10/09/16 History History of ENT Problems?: Yes HEENT History: Positive for:: Cataracts (Patient thinks she has cataracts currently.) Dysphagia (sometimes painful swallowing with tough foods.) Sinus Problem Denies:: Abnormal Airway Difficult Intubation Hearing Problem Denture Type: None Teeth Condition: Within Normal Limits Hx of Heart Problems?: Yes Cardiovascular History: Positive for:: Cardiac Surgery (2000 ANGIOPLASTY W/ STENTING) Chest Pain (OR 2000 S/P CARDIAC ARREST) Hypertension Irregular Heartbeat (OCCASIONAL "PALPITATIONS") Denies:: Atrial Fibrillation Congestive Heart Failure Edema Heart Murmur (STRESS ECHO 07/2011) Pacemaker Thrombophlebitis Valvular Heart Disease Hx of Respiratory Problem?: Yes Respiratory History: Positive for:: Dyspnea (with activity) Pneumonia Denies:: Asthma COPD Chest Surgery Emphysema Hemoptysis Tuberculosis Use of C-PAP Machine (GULSHAN+ DOES NOT USE CPAP SLEEP STUDY 02/2009) Hx Neurologic Problems?: No Neurological History: Denies:: CVA Hx of GI Problems?: Yes Hx of Problems?: No Female Hx: Positive for:: Problems with Breasts? (S/P RT BREAST BX) Denies:: Currently (S/P C/S) Endometriosis Pelvic Inflammatory Skin History: Positive for:: History Skin Disorders? (ECZEMA) Denies:: Pressure Ulcers Hx Musculoskeletal Problems?: Yes Musculoskeletal History: Denies:: Back Injury Joint Replacement Musculoskeletal Trauma Hx of Psycho/Social Problems?: Yes Psycho Social History: Positive for:: Hx Depression Denies:: Anxiety Bipolar Disorder Suicide Attempt Hx Surgeries?: Yes (APPY, VINICIUS, HYST, ) Hx Any Other Health Problems?: Yes Other History: Positive for:: Hospitalization Denies:: Cancer Endocrine Disease Thyroid Disease History Blood Transfusions: Denies:: Blood Transfuse Reaction Blood Transfusions Hx Diabetes: No (PREDIABETIC) Hx Alcohol Use: NoHx Substance Use: No Smoking Status: Unknown if Ever Smoker Have You Smoked inLast 12 mo: No Stop/Bang Risk Assessment Category Category 1A: Patient has history of documented sleep apnea, and HAS NOT received any narcotic, sedative or anesthesia administration during this stay. Category 1B: Patient has history of documented sleep apnea, and HAS received any narcotic , sedative or anesthesia administration during this stay Category 2: Patient has SUSPECTED Obstructive Sleep Apnea, and HAS received any narcotic , sedative or anesthesia administration during this stay. Category 3: Patient has SUSPECTED Obstructive Sleep Apnea and HAS NOT received narcotic, sedative or anesthesia administration during this stay. Category 4: Outpatient in Procedural Areas with known sleep apnea or who screen positive for High Risk via the STOP/BANG questionnaire. Exam Exam General Appearance: Alert, Oriented X3, Cooperative HEENT/AIRWAY: MP 2, Neck Movement (from), Mouth Opening (wnl) Lungs: Clear to Auscultation Heart: Exam Unremarkable Plan Impression Patient chart reviewed, patient interviewed and anesthestic plan with risks, benefits, and alternatives discussed, and informed consent obtained. ASA Physical Status: ASA2 Mod Systemic Disease Anesthetic Plan: GA Bene/Risks/Altern/Consents: Yes HP Complete Prior to Induction: Yes Ortiz Aleman MD Mar 11, 2017 12:55
[~2017-03-12] VITALS: Ht 147.3 cm; Wt 54.4 kg
[~2017-03-12 09:27] MED LIST changes: +ACID1TAB2 PO; -AMLO5TAB2 PO; +ASPI325T32 PO; -ASPI81TA3 PO; -CHOL10008 PO; -DULO60CA61 PO; +EZET10TA PO; +FLUT9.9S NS; +LISI-571 PO; +Lactated Ringer's 1,000 ML IV ONE; -MELA1TAB10 PO; -OMEP40CA36 PO; +PRE625 PO; +RANI150C4 PO; +SIMV80TA PO; -SIMV80TA4 PO
[2017-03-12] MEDS ORDERED: Propofol 10,000 mCg/mL 20 mL Inj ONE (09:28)
[2017-03-12 09:57] VITALS: BP 172/90; PULSE 75; RESP 17; O2SAT 95
[2017-03-12] MEDS ORDERED: ASPI-973 PO (10:02)
[2017-03-12] MEDS ORDERED: Lactated Ringer's 1,000 ML IV SCH (10:39)
[2017-03-12] MEDS ORDERED: MetoCLOpramide 5 mg/mL 2 mL Inj IVPUSH PRN (10:40)
[2017-03-12] MEDS ORDERED: Ondansetron 2 mg/mL 2 mL Inj IVPUSH PRN (10:40)
[2017-03-12 11:02] VITALS: BP 142/71; PULSE 59; RESP 14; O2SAT 96
[2017-03-12 11:12] VITALS: BP 155/69; PULSE 56; RESP 16; O2SAT 99
[2017-03-12 11:22] VITALS: BP 165/76; PULSE 65; RESP 16; O2SAT 94
--- NOTE | 2017-03-12 11:27 | ENDO ---
[address] [address] ENDOSCOPY PROCEDURE PATIENT: MAIKEL CONTRERAS : 1935 MR#: [id number] ADMIT: 03/12/2017 JOB ID: [id number] OPERATION: Esophagogastroduodenoscopy, biopsy, and colonoscopy with hot snare polypectomy. PREOPERATIVE DIAGNOSIS(ES): 1. Dysphagia. 2. Rectal bleeding. 3. Abdominal pain. POSTOPERATIVE DIAGNOSIS(ES): 1. Mild distal esophagitis. 2. Widely open, patent Schatzki's ring, status post biopsy. 3. Small hiatal hernia. 4. Mild nonerosive gastritis. 5. Multiple duodenal ulcers in the bulb, clean based, nonbleeding, largest size 5 mm, status post biopsy. 6. Mild duodenitis in the second portion. 7. A 1 cm polyp seen in the descending colon, removed by hot snare polypectomy. 8. Small internal hemorrhoids. 9. Mild sigmoid diverticulosis. ANESTHESIA: Monitored anesthesia care. COMPLICATIONS: None. BLOOD LOSS: Minimal. DESCRIPTION OF PROCEDURE: After risks and benefits were explained to the patient, informed consent was obtained. After anesthesia administered, upper endoscope was inserted into the mouth, intubated the esophagus, stomach, second portion of duodenum. Mucosa carefully examined. After procedure was done, the scope withdrawn and procedure terminated. Colonoscope was then inserted per rectum to the cecum. Mucosa carefully examined. Prep of the patient was fair. After the procedure, the scope was withdrawn, the procedure was terminated. Upon inspection of the esophagus, there was a Schatzki's ring in the distal esophagus. There was also mild distal esophagitis. Z-line located at 33 cm from incisors. Upon entry into the stomach, there is mild nonerosive gastritis. No masses or ulcerations were seen. Retroflexion showed small hiatal hernia. Then, upon entering the duodenal bulb, there one small ulcer, clean based, nonbleeding, 5 mm in largest size. The first portion and second portion revealed mild duodenitis. Biopsies taken from the duodenum, duodenal bulb, antrum, body, mid and distal esophagus. Upon inspection of the anus, no masses, hemorrhoids, ulcers, fissures that were seen. Throughout the entire examination, there was a 1 cm descending colon polyp removed by hot snare polypectomy. There is no mild sigmoid diverticulosis. No other polyps or masses were seen. Retroflexion showed small internal hemorrhoids. IMPRESSIONS: 1. Widely open and patent Schatzki's ring. Status post biopsy. 2. Distal esophagitis. 3. Mild nonerosive gastritis. 4. Multiple ulcers, clean based, nonbleeding, in the bulb, largest size 5 mm, status post biopsy. 5. Duodenitis, mild. 6. Mild sigmoid diverticulosis. 7. A 1 cm descending colon polyp, removed by hot snare polypectomy. 8. Small internal hemorrhoids. RECOMMENDATION: 1. Await pathology results. 2. Protonix 40 mg by mouth twice a day. 3. Carafate 1 g by mouth four times a day. 4. If tubular adenoma, then repeat colonoscopy in three years. 5. Followup in GI clinic with referring provider.
--- NOTE | 2017-03-12 11:57 | PCM.ANEP1 ---
Post Anesthesia PACU Phase 1 Assessment Vital Signs Vital Signs Date Time Temp Pulse Resp B/P Pulse Ox O2 Delivery O2 Flow Rate FiO2 03/12/17 11:22 65 16 165/76 94 Room Air 03/12/17 11:12 56 16 155/69 99 Nasal Cannula 2 03/12/17 11:02 59 14 142/71 96 Nasal Cannula 3 03/12/17 09:57 36.7 75 17 172/90 95 Room Air Anesthetic Administered: GA Level of Alertness: Awake, talking MOON's with Equal Strength: Yes Pain: No Nausea or Vomiting: No CV Function & Hydration Stable: Yes Airway Device: Oxygen Delivery: Room Air Lungs: Normal Air Movement PACU Phase 2 Assessment Complications: No Follow up Care: No Patient Instructions Provided: N/A Ortiz Aleman MD Mar 12, 2017 11:57
--- NOTE | 2017-03-13 12:26 | PATH ---
SURGICAL PATHOLOGY Attending Physician:Rhett Caballero MD CASE STATUS: Signed Out PATIENT NAME: MAIKEL CONTRERAS PID: [id number] : 1935 DATE COLLECTED:03/12/2017 22:14 SPECIMEN: 1: Esophagus, Biopsy 2: Stomach, Antrum, Biopsy 3: Gastric, Biopsy 4: Duodenum, Biopsy 5: Esophagus, Biopsy 6: Colon, Polyp CLINICAL HISTORY: 1). DISTAL ESOPHAGUS 2). ANTRUM 3). GASTRIC BODY 4). DUODENUM 5). MID ESOPHAGUS 6). DESCENDING COLON POLYP FINAL DIAGNOSIS: 1.DISTAL ESOPHAGUS BIOPSY: FRAGMENTS OF SQUAMOUS MUCOSA WITH NO GASTRIC-TYPE MUCOSA IDENTIFIED. Negative for significant atypia. Negative for intraepithelial eosinophils. 2.GASTRIC ANTRUM BIOPSY: MILD CHRONIC GASTRITIS INVOLVING ANTRAL MUCOSA. Negative for evidence of Helicobacter on H&E stain. Negative for intestinal metaplasia. Negative for dysplasia and malignancy. 3.GASTRIC BODY BIOPSY: MILD CHRONIC GASTRITIS INVOLVING FUNDIC MUCOSA. Negative for evidence of Helicobacter on H&E stain. Negative for intestinal metaplasia. Negative for dysplasia and malignancy. 4.DUODENUM BIOPSY: FRAGMENTS OF NORMAL-APPEARING DUODENUM MUCOSA. Normal delicate mucosal villi present. Negative for significant inflammation, dysplasia and malignancy. 5.MID ESOPHAGUS BIOPSY: FRAGMENTS OF SQUAMOUS MUCOSA WITH NONSPECIFIC MILD REACTIVE CHANGES, NEGATIVE FOR SIGNIFICANT ATYPIA. Negative for intraepithelial eosinophils. 6.DESCENDING COLON POLYP: TUBULAR ADENOMA INVOLVING ALL BIOPSY FRAGMENTS. ICD10 D12.4 GROSS DESCRIPTION: Received are six containers of formalin. 1. Received in formalin, labeled with the patient' s name and "distal esophagus", are two fragments of bojorquez, soft tissue ranging from 0.2 x 0.2 x 0.1 cm to 0.3 x 0.2 x 0.2 cm. The fragments are completely submitted in cassette 1A. 2. Received in formalin, labeled with the patient' s name and "antrum", is one fragment of bojorquez, soft tissue measuring 0.4. x 0.4 x 0.2 cm. The fragment is completely submitted in cassette 2A. 3. Received in formalin, labeled with the patient' s name and "gastric body", are two fragments of bojorquez, soft tissue ranging from 0.2 x 0.1 x 0.1 cm to 0.4 x 0.3 x 0.2 cm. The fragments are completely submitted in cassette 3A 4. Received in formalin, labeled with the patient' s name and "duodenum", are five fragments of bojorquez, soft tissue ranging from 0.1 x 0.1 x 0.1 cm to 0.4 x 0.3 x 0.2 cm. The fragments are completely submitted in cassette 4A. 5. Received in formalin, labeled with the patient' s name and "ND esophagus", are two fragments of bojorquez, soft tissue ranging from 0.3 x 0.2 x 0.2 cm to 0.3 x 0.3 x 0.2 cm. The fragments are completely submitted in cassette 5A. 6. Received in formalin, labeled with the patient' s name and "descending colon polyp", are four fragments of bojorquez, soft tissue ranging from 0.1 x 0.1 x 0.1 cm to 0.4 x 0.3 x 0.2 cm. The fragments are completely submitted in cassette 6A. (JH:[id number]) MICRO DESCRIPTION: See diagnosis. ICD-9 CODES: CPT CODES: 1: 10402 2: 38802 3: 70835 4: 00268 5: 57645 6: 33732 Electronically Signed Out Chris Graham MD [facility] Pathology [facility] [address], [place] [address] Technical component performed at [facility], [facility] [address], [place], [address]
== END 2017-03-12 23:59 | disposition home or self-care (01) ==
LOC: END 09:27
PROVIDERS: ATTEND Internal Medicine Gastroenterology
DX: D12.4 Benign neoplasm of descending colon (principal); K57.30 Diverticulosis of large intestine without perforation or abscess without bleeding; K64.8 Other hemorrhoids; K29.50 Unspecified chronic gastritis without bleeding; K22.2 Esophageal obstruction; K44.9 Diaphragmatic hernia without obstruction or gangrene; K20.8 Other esophagitis; K29.80 Duodenitis without bleeding; K26.9 Duodenal ulcer, unspecified as acute or chronic, without hemorrhage or perforation; G47.33 Obstructive sleep apnea (adult) (pediatric); I25.10 Atherosclerotic heart disease of native coronary artery without angina pectoris; I25.2 Old myocardial infarction; E78.5 Hyperlipidemia, unspecified; I10 Essential (primary) hypertension; F41.8 Other specified anxiety disorders; Z79.82 Long term (current) use of aspirin
CPT/HCPCS: 43239; 45385; J7120